=== PATIENT | female | born 1990 | race Caucasian/White ===

== ENCOUNTER 2019-08-27 06:51 | Emergency (ER) | payer OTHER, SELFPAY ==
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
[2019-08-27 06:56] VITALS: BP 126/93; PULSE 68; RESP 16; TEMP 36.3; O2SAT 99
[2019-08-27] MEDS: Acetaminophen 500 MG TAB 1000 MG PO (07:15)
[2019-08-27] MEDS: Ibuprofen 800 MG TAB PO (07:15)
== END 2019-08-27 07:24 | disposition home or self-care (01) ==
LOC: ER 07:26
PROVIDERS: Emergency Provider Student in an Organized Health Care Education/Training Program
DX: T20.17XA Burn of first degree of neck, initial encounter (principal); T20.112A Burn of first degree of left ear [any part, except ear drum], initial encounter; X14.1XXA Other contact with hot air and other hot gases, initial encounter
CPT/HCPCS: 90471; 99283

== ENCOUNTER 2022-02-03 10:50 | Emergency (ER) | payer OTHER, SELFPAY ==
--- NOTE | 2022-02-03 11:00 | DI.RAD_ITS ---
Exam(s) XR ANKLE RT COMPLETE EXAM: XR ANKLE RT COMPLETE CLINICAL HISTORY: R lateral pain. TECHNIQUE: 2D digital imaging was performed of the right ankle. Three images were obtained. AP, la teral and oblique views were obtained. COMPARISON: No exams were available for comparison FINDINGS: BONES: There is an acute nondisplaced transverse fracture of the lateral malleolus. It lies 1 cm bel ow the tibial talar joint. No bony destructive lesion is seen. There is a tiny well corticated osseo us density at the tip of the medial malleolus which appears old. JOINTS: The ankle mortise is normally aligned. SOFT TISSUE: There is soft tissue swelling about the ankle laterally. IMPRESSION: Acute nondisplaced fracture of the lateral malleolus with associated soft tissue swelling. DATA REPOSITORY: RADIATION DOSE DELIVERED:
[2022-02-03 11:01] VITALS: BP 131/88; PULSE 91; RESP 18; O2SAT 98
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
== END 2022-02-03 12:24 | disposition home or self-care (01) ==
PROVIDERS: Emergency Provider Emergency Medicine
DX: S82.831A Other fracture of upper and lower end of right fibula, initial encounter for closed fracture (principal); X50.9XXA Other and unspecified overexertion or strenuous movements or postures, initial encounter; Y93.39 Activity, other involving climbing, rappelling and jumping off
CPT/HCPCS: 99283; 73610; 99282

== ENCOUNTER 2022-02-11 13:53 | Outpatient (CLI) | payer OTHER, SELFPAY ==
--- NOTE | 2022-02-11 12:45 | DI.RAD_ITS ---
Exam(s) XR ANKLE RT COMPLETE EXAM: XR ANKLE RT COMPLETE INDICATION: right fibula fx f/u. COMPARISON: CR XR ANKLE RT COMPLETE from 02/03/2022 TECHNIQUE: 2D digital imaging was performed. Three views. FINDINGS: There has been no change in the alignment of the lateral malleolar fracture. Soft tissue swelling re aston present. No new abnormalities are seen. DATA REPOSITORY: RADIATION DOSE DELIVERED:
== END 2022-02-11 13:54 | disposition home or self-care (01) ==
LOC: DIORS 13:53
PROVIDERS: Visit Provider Student in an Organized Health Care Education/Training Program
DX: S82.64XA Nondisplaced fracture of lateral malleolus of right fibula, initial encounter for closed fracture; X58.XXXA Exposure to other specified factors, initial encounter
CPT/HCPCS: 73610

== ENCOUNTER 2022-03-24 14:30 | Outpatient (CLI) | payer OTHER, SELFPAY ==
--- NOTE | 2022-03-24 12:45 | DI.RAD_ITS ---
Exam(s) XR ANKLE RT COMPLETE EXAM: XR ANKLE RT COMPLETE CLINICAL HISTORY: right fibula fx f/u. TECHNIQUE: 2D digital imaging was performed. COMPARISON: CR XR ANKLE RT COMPLETE from 02/11/2022 FINDINGS: 3 views Again noted is a transverse fracture at the lateral malleolus level. Nondisplaced. No widening of t he ankle mortise on these nonstress views. Talar dome appears unremarkable. Medial and posterior ma lleoli unremarkable. No evidence of osseous tarsal coalition. IMPRESSION: As above. DATA REPOSITORY: RADIATION DOSE DELIVERED:
== END 2022-03-24 14:31 | disposition home or self-care (01) ==
LOC: DIORS 14:31
PROVIDERS: Visit Provider Student in an Organized Health Care Education/Training Program
DX: S82.64XD Nondisplaced fracture of lateral malleolus of right fibula, subsequent encounter for closed fracture with routine healing (principal); X58.XXXD Exposure to other specified factors, subsequent encounter
CPT/HCPCS: 73610

== ENCOUNTER 2022-12-21 08:24 | Emergency (ER) | payer OTHER, SELFPAY ==
[2022-12-21 08:26] VITALS: BP 127/73; PULSE 61; RESP 16; TEMP 36.4; O2SAT 100
--- NOTE | 2022-12-21 08:30 | DI.RAD_ITS ---
Exam(s) XR HAND LT COMPLETE EXAM: XR HAND LT COMPLETE CLINICAL HISTORY: dog bite, 2nd MCP, ulnar hand. TECHNIQUE: 2D digital imaging was performed. COMPARISON: No exams were available for comparison FINDINGS: 3 views There is air-gas in the soft tissues over the dorso-medial aspect of the wrist. There appears to be an overlying laceration. No radiopaque foreign body evident. No fractures. No radiographic evidenc e of osteomyelitis.. IMPRESSION: Soft tissue air-gas which appears to be related to laceration. This is over the medial aspect of the wrist. No significant osseous findings. DATA REPOSITORY: RADIATION DOSE DELIVERED:
--- NOTE | 2022-12-21 08:42 | ED.GENADUL_ITS ---
Discharge Plan Disposition Patient Disposition: Home Condition: Good Discharge Details Clinical Impression: Dog bite of hand, Puncture wound of hand Primary Care Provider: Unknown,Unknown ED Provider: Jaclyn Charles Home Meds and New Rx's Prescriptions: New amoxicillin-pot clavulanate 875-125 mg tablet 1 tab PO BID 7 Days Qty: 14 0RF Continued paroxetine HCl [Paxil] 40 mg Tablet 40 mg PO DAILY Discharge Instructions Instructions: Animal Bite (ED), Puncture Wound (ED) Additional Instructions: As we discussed, I am concerned that you are at risk for infection with the dog bite, in particular, the puncture wound. Please keep wound clean, dry, covered. You may wash with running water and soap. You may continue with the splint to help with discomfort. Please allow the adhesive strips to come off on their own and do not pick or pull at these. Please take the antibiotics as prescribed. While on the antibiotics, please take probiotic or eat yogurt. Care management will help arrange for prompt follow up with primary care. If you develop increased pain, fevers/chills, spreading redness/warmth or discharge, please seek care urgently once again. Stand Alone Forms: Work Release Medical Decision Making Patient is a pleasant [id number] 32-year-old female presenting with chief complaint of dog bite to the left hand. Dog bite occurred approximately 12 hours prior to arrival. She reports that it was her 2 pit bulls that were fighting over a jar of peanut butter when she stuck her arm in between them and suffered a puncture wound at the MCP of the second digit as well as a laceration to the ulnar side of the hand. She reports that she cleansed these and applied silver sulfadiazine. Unknown tetanus status. She reports that her dogs are up-to-date on all of their vaccines including rabies. She denies other injury at the time of the incident. Denies any numbness or tingling. TDAP 2019. On exam, patient appears nontoxic. She has a 5 mm puncture wound over the MCP joint of the left index finger along the dorsal side. She is able to extend against resistance at all joints. Intact sensation. Slight swelling around this but no discharge. No palpable defect. Patient also has a 2 cm linear laceration over the ulnar side of the hand where it abuts the wrist. Again, full range of motion and intact sensation. No surrounding erythema, warmth, drainage and minimal swelling over this area. Patient I discussed wound care in depth. Based on age of the wounds as well as the fact that they were bite wounds, I am quite concerned regarding tight closure. However, the wound along the ulnar side is quite from wound edge margins and we did discuss using a adhesive strip to help gently reapproximate the wounds edges while still allowing for good drainage areas. In regard to the puncture wound, I do not feel that closure is appropriate for this wound. We will begin the patient on Augmentin. She has an IUD in place and denies being . She is requesting analgesics we will give her ibuprofen to help with her discomfort. We will obtain an x-ray to ensure no broken tooth or foreign body retained. FINDINGS: 3 views There is air-gas in the soft tissues over the dorso-medial aspect of the wrist.? There appears to be an overlying laceration.? No radiopaque foreign body evident.? No fractures.? No radiographic evidence of osteomyelitis.. Discussed with patient. Air is consistent with where laceration is. Patient and I discussed wound care in depth. Will cleanse the wounds but do not feel that closure over the left index finger is appropriate. Concerned for the puncture and possible infection. In regard to the larger laceration, we discussed options to prevent signficant scaring. Will gently reapproximate with steristrips and hold in place with benzoin. Will keep edges slightly apart and allow for drainage spaces between the strips. Wounds were cleansed by myself with sterile water. Explored to base in bloodless field, no FB or debris noted. No deep structure invovlement. 2 steristrips applied but and wound edges gently pulled togeheter, still allowing for drainage in infection risk area. Discussed wound care in depth. Strict return precautions discussed. Will apply finger splint to help with discomfort. Encouraged RICE. Will keep on abx. Strict return precautions discussed. Advised close f/u with PCP. All of her questons and concerns were addressed, she is in a greement with this plan. HPI General Date/Time Provider Initiated Documentation: 12/21/22 08:28 . Limitations to Documentation: no limitations . Information obtained by: patient and RN notes reviewed . History of Present Illness 32 year old F presents to the emergency department with the chief complaint of dog bite left hand, described as moderate, with intensity rated at 5. Quality is described as aching, and is localized to the left and upper extremity. Patient reports no radiation. Patient started experiencing this hour(s) (12) and it has been constant. Immobilization improves symptom(s), Movement worsens symptoms . Patient notes no other symptoms.. Patient did receive the following treatments prior to arrival, none Related Data Home Medications Medication Instructions Recorded Confirmed paroxetine HCl 40 mg tablet (Paxil) 40 mg PO DAILY 08/27/19 12/21/22 amoxicillin 875 mg-potassium 1 tab PO BID 7 days #14 tabs 12/21/22 clavulanate 125 mg tablet Previous Rx's Medication Instructions Recorded amoxicillin 875 mg-potassium 1 tab PO BID 7 days #14 tabs 12/21/22 clavulanate 125 mg tablet Allergies Allergy/AdvReac Type Severity Reaction Status Date / Time No Known Allergies Allergy Unverified 12/21/22 08:31 General Stated Complaint: AnimalBite ASHOK: 4 Review of Systems Constitutional Constitutional: Reports as per HPI, Denies chills and Denies fever(s) Musculoskeletal Musculoskeletal: Reports as per HPI Integumentary/Breasts Skin/Breast: Reports as per HPI Neurologic Neurologic: Reports as per HPI, Denies sensory deficit and Denies paresthesias PFSH All Active Problems (Updated 12/21/22 @ 09:30 by MELYSSA Mohan) Dog bite of hand (Acute) Puncture wound of hand (Acute) Social History Smoking/Tobacco Use Status: Never Smoking risk assessment performed?: Yes Alcohol Intake: current Alcohol Intake frequency: holidays/special occasions only Drug use: Daily Substance use type: marijuana Housing: house Current gender identity: female Do you feel safe at home: Yes Do you feel safe in your relationship?: Yes Exam Const General: cooperative, healthy appearing, comfortable, no acute distress and well developed Nutritional Appearance: well nourished and overweight Orientation: alert and awake Resp Effort & Inspection: normal respiratory effort, able to speak in complete sentences and no respiratory distress Cardio Rate: regular rate Rhythm: regular rhythm Skin Trauma: laceration and puncture Neuro General: patient alert and patient awake Cognition: normal cognition Speech: speech normal Gait: normal gait Sensory Exam: no sensory deficits noted Extrem Hand/finger images: 1. Area of puncture wound. Slightly ulnar to midline over the MCP. Patient is able to fully flex and extend although she does have some discomfort with extremes of both movement secondary to swelling and wound. No discharge. No erythema or warmth. She does have swelling that extends around the joint area. No palpable visible foreign body. Unable to visualize any deep wound structures. No active bleeding. 2. 2 cm linear laceration into the subcu tissue. No deep structure involvement is able to be visualized. No active bleeding. No palpable or visual foreign body. Full range of motion. No surrounding erythema, warmth, discharge. Psych Appearance: grossly normal and well kempt Mental Status: mental status grossly normal Speech and Movement: speech and movement normal Course Vital Signs Vital signs: Vital Signs Temperature 36.4 C L 12/21/22 08:26 Pulse 61 12/21/22 08:26 Respiratory Rate 16 12/21/22 08:26 Blood Pressure 127/73 12/21/22 08:26 Pulse Oximetry 100 12/21/22 08:26 Temperature 36.4 C L 12/21/22 08:26 Temperature Source Temporal Artery Scan 12/21/22 08:26 Pulse 61 12/21/22 08:26 Respiratory Rate 16 12/21/22 08:26 Respiratory Effort Normal 12/21/22 08:29 Blood Pressure 127/73 12/21/22 08:26 Blood Pressure Position Sitting 12/21/22 08:26 Pulse Oximetry 100 12/21/22 08:26 Oxygen Delivery Method Room Air 12/21/22 08:26 Oxygen Flow Rate 0 12/21/22 08:26 Pain Level 5 12/21/22 08:26
[2022-12-21] MEDS: Ibuprofen 600 MG TAB PO (08:58)
[2022-12-21] MEDS: Amoxicillin 875/Clav. 125 TAB PO (08:58)
== END 2022-12-21 09:49 | disposition home or self-care (01) ==
PROVIDERS: Emergency Provider Physician Assistant
DX: S61.452A Open bite of left hand, initial encounter (principal); W54.0XXA Bitten by dog, initial encounter
CPT/HCPCS: 99283; 73130; 99284

== ENCOUNTER 2024-01-18 10:20 | Outpatient (CLI) | payer OTHER, SELFPAY ==
[2024-01-18 12:20] LABS: HCT 37.7 % (36.0-46.0); HGB 12.3 g/dL (11.2-15.7); MCHC 32.6 % (32.0-36.0); MCV 89 fL (80-95); MPV 10.7 fL (8.0-11.0); Platelet Count 293 10^3/uL (130-400); RBC 4.24 10^6/uL (3.93-5.22); RDW 12.1 % (11.7-14.6); RDW-SD 38.7 fL; WBC 6.66 10^3/uL (4.4-10.8)
[2024-01-18 13:06] LABS: ALT 26 U/L (14-59); AST 15 U/L (15-37); Albumin 3.9 g/dL (3.4-5.0); Alkaline Phosphatase 77 U/L (46-116); Anion Gap 9.5 mmol/L (3-11); BUN 12 mg/dL (7-18); Bilirubin, Total 0.33 mg/dL (0.2-1.0); CO2 26.5 mmol/L (21.0-32.0); CREATININE 0.7 mg/dL (0.55-1.02); Calcium 8.7 mg/dL (8.5-10.1); Calculated LDL 94 mg/dL (<100); Chloride 105 mmol/L (98-107); Cholesterol 149 mg/dL (<200); Estimated GFR 115.59 (mL/min/1.73m2); Glucose 86 mg/dL (74-106); HDL Cholesterol 48 mg/dL (40-60); Potassium 4.2 mmol/L (3.5-5.1); Sodium 141 mmol/L (136-145); TSH (W/Ref FT4) 0.77 uIU/mL (0.36-3.74); Triglyceride 37 mg/dL (<150)
[2024-01-18 13:16] LABS: Hemoglobin A1C 5.3 % (<5.7)
== END 2024-01-18 10:21 | disposition home or self-care (01) ==
LOC: LOS 10:20
PROVIDERS: PCP Nurse Practitioner Family; Referring Provider Nurse Practitioner Family; Visit Provider Nurse Practitioner Family
DX: Z00.00 Encounter for general adult medical examination without abnormal findings (principal); Z83.3 Family history of diabetes mellitus; Z83.49 Family history of other endocrine, nutritional and metabolic diseases
CPT/HCPCS: 36415; 80053; 80061; 85027; 83036; 84443

== ENCOUNTER 2024-03-14 11:31 | Outpatient (REF) | payer OTHER, SELFPAY ==
[2024-03-15 12:25] LABS: Chlamydia Result Negative (Negative); GC Result Negative (Negative)
== END 2024-03-14 11:32 | disposition home or self-care (01) ==
LOC: LBN 11:31
PROVIDERS: PCP Nurse Practitioner Family; Visit Provider Obstetrics & Gynecology
DX: Z30.9 Encounter for contraceptive management, unspecified (principal); Z53.8 Procedure and treatment not carried out for other reasons; Z97.5 Presence of (intrauterine) contraceptive device
CPT/HCPCS: 87491; 87591

== ENCOUNTER 2025-03-19 13:22 | Outpatient (REF) | payer OTHER, SELFPAY ==
--- NOTE | 2025-03-19 13:00 | PAPFT_PTH ---
PATIENT: Juana Connors LOC: [facility] U#:[id number] AGE/SX: 35/F ROOM: RE03/19/[address]: Jaimee Moore NP : 1990 BED: DIS: 03/19/2025 SPEC #: [id number] RECD: 03/19/25 18:36 STATUS: NAVARROLeigha RENella #: [id number] ANNELIESE: 03/19/25 13:[address]: Jaimee Moore NP DEPT: [facility] Cytology RECD BY: Libia Lara ENTERED: 03/19/25 18:38 SP TYPE: PAPFT OTHR DR: Mattie Nino NP Tissues: 1 - CX/ENDOCX FOR PAP SMEARS Procedures: PAP THIN PREP/UVM Screening HPV DNA PROBE Comments: [id number] (HPV 16 & 18/45) (CHLAMYDIA/GC)
[2025-03-20 11:16] LABS: Chlamydia Result Negative (Negative); GC Result Negative (Negative)
== END 2025-03-19 13:23 | disposition home or self-care (01) ==
LOC: LBN 13:22
PROVIDERS: PCP Nurse Practitioner Family; Visit Provider Nurse Practitioner Women's Health
DX: Z11.51 Encounter for screening for human papillomavirus (HPV) (principal); Z11.3 Encounter for screening for infections with a predominantly sexual mode of transmission; Z01.419 Encounter for gynecological examination (general) (routine) without abnormal findings
CPT/HCPCS: 87491; 87591; 88142; 87624

== ENCOUNTER 2025-03-20 00:39 | Outpatient (CLI) | payer OTHER, SELFPAY ==
[2025-03-20 13:28] LABS: TSH (W/Ref FT4) 2.36 uIU/mL (0.55-4.78)
[2025-03-20 22:55] LABS: Hepatitis C Ab w Rflx HCV PCR Negative (Negative)
[2025-03-20 23:12] LABS: HIV-1/2 Ag & Ab Screen Negative (Negative)
[2025-03-21 09:54] LABS: Lyme Ab w Rflx to Lyme Confirm Negative (Negative)
[2025-03-21 21:09] LABS: Galactose-alpha-1,3 IgE <0.10 kU/L (<0.70)
[2025-03-22 22:25] LABS: B. miyamotoi PCR Negative (Negative); Babesia divergens/MO-1 Negative (Negative); Ehrlichia muris eauclairensis Negative (Negative)
[2025-03-22 23:06] LABS: Syphilis IgG w/Reflex Nonreactive (Nonreactive)
== END 2025-03-20 00:40 | disposition home or self-care (01) ==
PROVIDERS: Nurse Practitioner Women's Health; PCP Nurse Practitioner Family; Visit Provider Nurse Practitioner Family
DX: Z11.3 Encounter for screening for infections with a predominantly sexual mode of transmission (principal); W57.XXXA Bitten or stung by nonvenomous insect and other nonvenomous arthropods, initial encounter; R68.89 Other general symptoms and signs; Z00.00 Encounter for general adult medical examination without abnormal findings
CPT/HCPCS: 36415; 86003; 86803; 87389; 87798; 84443; 86618; 86780